=== PATIENT | male | born 1975 | race Caucasian/White ===

== ENCOUNTER 2024-03-29 00:25 | Emergency (ER) | payer MEDICAID, SELFPAY ==
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
[2024-03-29 00:31] VITALS: BP 140/90; PULSE 100; O2SAT 99
[2024-03-29 00:41] VITALS: BP 162/105; PULSE 93; RESP 16; TEMP 36.8; O2SAT 98
[2024-03-29 00:57] VITALS: BMI 21.6
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
[2024-03-29 03:27] VITALS: BP 127/72; PULSE 84; RESP 16; TEMP 36.8; O2SAT 99
[2024-03-29 04:45] VITALS: BP 127/72; PULSE 84; RESP 16; TEMP 36.8; O2SAT 99
== END 2024-03-29 05:53 | disposition home or self-care (01) ==
PROVIDERS: Emergency Provider Emergency Medicine
DX: F10.120 Alcohol abuse with intoxication, uncomplicated (principal); Y90.9 Presence of alcohol in blood, level not specified; S70.01XA Contusion of right hip, initial encounter; V47.5XXA Car driver injured in collision with fixed or stationary object in traffic accident, initial encounter; R51.9 Headache, unspecified; Y93.89 Activity, other specified; Y92.410 Unspecified street and highway as the place of occurrence of the external cause; Y99.9 Unspecified external cause status
CPT/HCPCS: 70450; 72125; 73502; 99284